=== PATIENT | male | born 1960 | race Caucasian/White ===

== ENCOUNTER 2019-09-06 12:34 | Inpatient (IN) | payer MEDICAID ==
[~2019-09-06] VITALS: Ht 175.3 cm; Wt 63.0 kg
[~2019-09-06 12:34] MED LIST: ASPI81TA52 PO; ATOR10TA87 PO; CLOP75TA15 PO; LISI-600 PO; METO-395 PO; METO-539 PO
[2019-09-06 13:06] LABS: BASOPHILS # (AUTO) 0.1 X10'3 (0-0.2); EOSINOPHILS % (AUTO) 0.4 % (0-6); HEMATOCRIT 42.4 % (42.0-52.0); HEMOGLOBIN 14.2 g/dl (14.0-17.9); LYMPHOCYTES # (AUTO) 1.2 X10'3 (1.1-4.8); LYMPHOCYTES % (AUTO) 12.7 % (21-51); MEAN CORPUSCULAR HEMOGLOBIN 33.6 PG (27.0-31.0); MEAN CORPUSCULAR HGB CONC 33.4 g/dL (33.0-36.5); MEAN CORPUSCULAR VOLUME 100.4 FL (78-98); MEAN PLATELET VOLUME 8.2 FL (7.4-10.4); MONOCYTES % (AUTO) 10.6 % (2-12); NEUTROPHILS # (AUTO) 7.1 X10'3 (1.8-7.7); NEUTROPHILS % (AUTO) 75.3 % (42-75); PLATELET COUNT 205 X10'3 (140-440); RED BLOOD COUNT 4.22 X10'6 (4.70-6.10); RED CELL DISTRIBUTION WIDTH 14.7 % (11.5-14.5); WHITE BLOOD COUNT 9.4 X10'3 (4.5-11.0)
[2019-09-06 13:20] LABS: PARTIAL THROMBOPLASTIN TIME 25 SECONDS (22-32)
[2019-09-06 13:23] LABS: ALANINE AMINOTRANSFERASE 93 U/L (12-78); ALBUMIN 3.6 G/DL (3.4-5.0); ALKALINE PHOSPHATASE 101 IU/L (46-116); ANION GAP 15 (8-16); ASPARTATE AMINO TRANSFERASE 268 U/L (10-37); BILIRUBIN,TOTAL 0.6 MG/DL (0.1-1.0); BLOOD UREA NITROGEN 31 MG/DL (7-18); BUN/CREATININE RATIO 26.3 (5.4-32.0); CALCIUM 9.2 MG/DL (8.5-10.1); CHLORIDE 99 MMOL/L (99-107); CREATININE 1.18 MG/DL (0.60-1.10); GLUCOSE 73 MG/DL (70-104); SODIUM 141 MMOL/L (135-145); TOTAL CARBON DIOXIDE 26.8 MMOL/L (24-32); TOTAL PROTEIN 7.1 G/DL (6.4-8.2); eGFR 63 ML/MIN
--- NOTE | 2019-09-06 13:28 | NUR ---
O2 TAKEN OFF AND HAD PT JUNE AT [facility]. PTS SATS MAINTAINED >92% DURING ACTIVITY, HR INCREASED FROM 60BPM TO 90'S BPM AND RR INCREASED FROM 18 TO 32. MD ALVARENGA INFORMED OF VSS WITH ACTIVITY.
[2019-09-06] MEDS ORDERED: magnesium 2GM in 50ml NS 50 ML IV PRN (14:55)
[2019-09-06] MEDS ORDERED: thiamine 100mg/ml 2ml inj. IV ONE (14:55)
[2019-09-06] MEDS ORDERED: acetaminophen 325mg tablet PO PRN (14:55)
[2019-09-06] MEDS ORDERED: dextrose 50%-water 50ml dispensing syringe IV PRN (14:55)
[2019-09-06] MEDS ORDERED: magnesium hydroxide 30ml (MOM) UD suspension PO PRN (14:55)
[2019-09-06] MEDS ORDERED: haloperidol 5mg tablet PO PRN (14:55)
[2019-09-06] MEDS ORDERED: potassium CL 10mEq/100ml bag 100 ML IV PRN ×2 (14:55)
[2019-09-06] MEDS ORDERED: potassium Cl 20 mEq SR tablet PO PRN ×2 (14:55)
[2019-09-06] MEDS ORDERED: ondansetron/PF 4mg/2ml inj IV PRN (14:55)
[2019-09-06] MEDS ORDERED: mag hydrox/Alum hydrox/simeth 30ml oral suspension PO PRN (14:55)
[2019-09-06] MEDS ORDERED: ipratropium/albuterol 3ml nebule NEB PRN (14:55)
[2019-09-06] MEDS ORDERED: magnesium 4gm in 100ml NS 100 ML IV PRN (14:55)
[2019-09-06] MEDS ORDERED: haloperidol lactate 5mg/ml inj IM PRN (14:55)
[2019-09-06] MEDS ORDERED: morphine 2 MG/ML inj. syringe IV PRN ×2 (14:55)
[2019-09-06 15:00] LABS: ABG BASE EXCESS -2.7 mmol/L (-2.0-3.0); ABG HCO3 22.4 mmol/L (22.0-26.0); ABG OXYGEN SATURATION 91.8 % (95-98); ABG PCO2 (T) 40.2 mmHg (35.0-45.0); ABG PH (T) 7.364 (7.350-7.450); ABG PO2 (T) 68.4 mmHg (83-108); ALLEN'S TEST POSITIVE; FCOHb 4.8 % (0.5-1.5); FMetHb 0.3 % (0.3-1.12); FO2Hb 87.1 % (94-100); TOTAL HEMOGLOBIN 13.7 G/dl (14.0-17.9)
[2019-09-06] MEDS ORDERED: HYDR25TA4 PO (15:17)
[2019-09-06] MEDS ORDERED: CHOL500050 PO (15:17)
[2019-09-06] MEDS ORDERED: DOXE10CA2 PO (15:17)
[2019-09-06] MEDS: normal saline 1000ml 1,000 ML IV SCH (15:56)
[2019-09-06 17:15] VITALS: BP 129/76
--- NOTE | 2019-09-06 18:44 | NUR ---
Patient in room [facility]. I have received report from Adela DUARTE and had the opportunity to ask questions and assume patient care.
[2019-09-06] MEDS ORDERED: pneumococcal 23-VAL P-sac vacc 25 mcg/0.5ml vial IMVAC ONE (19:00)
[2019-09-06] MEDS: budesonide 0.5mg/2ml UD nebule IH SCH (19:14)
[2019-09-06 20:00] VITALS: BP 122/73
[2019-09-06] MEDS: K and/or MAG REPLACEMENT MC SCH (20:00)
[2019-09-06] MEDS: doxepin 10mg capsule PO SCH (21:00)
[2019-09-06] MEDS: DOXYCYCLINE 100MG CAPSULE PO SCH (21:03)
[2019-09-06] MEDS: LORazepam 2 mg/ml vial IV PRN (23:20)
[2019-09-07] VITALS: BP 111/69
[2019-09-07] MEDS: heparin, porcine 5000 units/ml vial SQ SCH ×3 (00:22→17:17)
[2019-09-07] MEDS: normal saline 1000ml 1,000 ML IV SCH ×3 (03:18→22:53)
--- NOTE | 2019-09-07 06:25 | NUR ---
Patient in room [facility]. I have received report from GERALD Davis and had the opportunity to ask questions and assume patient care.
--- NOTE | 2019-09-07 06:28 | NUR ---
Problems reprioritized. Patient report given, questions answered & plan of care reviewed with Mary DUARTE.
[2019-09-07 06:56] LABS: HEMATOCRIT 37.7 % (42.0-52.0); HEMOGLOBIN 12.5 g/dl (14.0-17.9); MEAN CORPUSCULAR HEMOGLOBIN 33.7 PG (27.0-31.0); MEAN CORPUSCULAR HGB CONC 33.2 g/dL (33.0-36.5); MEAN CORPUSCULAR VOLUME 101.7 FL (78-98); MEAN PLATELET VOLUME 8.7 FL (7.4-10.4); PLATELET COUNT 166 X10'3 (140-440); RED BLOOD COUNT 3.71 X10'6 (4.70-6.10); RED CELL DISTRIBUTION WIDTH 14.8 % (11.5-14.5); WHITE BLOOD COUNT 8.9 X10'3 (4.5-11.0)
[2019-09-07 07:16] LABS: ALANINE AMINOTRANSFERASE 83 U/L (12-78); ALBUMIN 2.9 G/DL (3.4-5.0); ALKALINE PHOSPHATASE 85 IU/L (46-116); ANION GAP 6 (8-16); ASPARTATE AMINO TRANSFERASE 210 U/L (10-37); BILIRUBIN,TOTAL 0.7 MG/DL (0.1-1.0); BLOOD UREA NITROGEN 32 MG/DL (7-18); BUN/CREATININE RATIO 24.1 (5.4-32.0); CALCIUM 7.9 MG/DL (8.5-10.1); CHLORIDE 103 MMOL/L (99-107); CHOL/HDL RATIO 1.7 (0.00-4.99); CHOLESTEROL 163 MG/DL (0-200); CREATININE 1.33 MG/DL (0.60-1.10); GLUCOSE 74 MG/DL (70-104); HDL CHOLESTEROL 95 MG/DL (35-60); LDL CHOLESTEROL 41 MG/DL (50-100); MAGNESIUM 1.3 MG/DL (1.5-2.4); POTASSIUM 3.8 MMOL/L (3.5-5.1); SODIUM 140 MMOL/L (135-145); TOTAL CARBON DIOXIDE 30.7 MMOL/L (24-32); TOTAL PROTEIN 5.8 G/DL (6.4-8.2); TRIGLYCERIDES 109 MG/DL (20-135); eGFR 55 ML/MIN
[2019-09-07] MEDS: thiamine 100mg tablet PO SCH (07:43)
[2019-09-07] MEDS: cholecalciferol (vitamin D) 400 unit tablet PO SCH (07:43)
[2019-09-07] MEDS: folic acid 1mg tablet PO SCH (07:45)
[2019-09-07] MEDS: predniSONE 20 mg tablet PO SCH (07:45)
[2019-09-07] MEDS: multivitamins, therapeutics tablet PO SCH (07:45)
[2019-09-07] MEDS: DOXYCYCLINE 100MG CAPSULE PO SCH ×2 (07:45→20:49)
[2019-09-07] MEDS: aspirin 81mg tablet.DR PO SCH (07:45)
[2019-09-07 08:00] VITALS: BP 107/56
[2019-09-07] MEDS: metoprolol succinate 25mg (24-HOUR) SR. Tablet PO SCH (08:00)
[2019-09-07] MEDS: K and/or MAG REPLACEMENT MC SCH ×2 (08:00→20:00)
--- NOTE | 2019-09-07 08:05 | NUR ---
Pt refused Metoprolol BP107/56. HR 61. states did not want BP to drop too low.
[2019-09-07] MEDS: budesonide 0.5mg/2ml UD nebule IH SCH ×2 (08:26→19:30)
[2019-09-07] MEDS: LORazepam 2 mg/ml vial IV PRN ×2 (11:10→20:49)
[2019-09-07 12:00] VITALS: BP 107/74
--- NOTE | 2019-09-07 12:03 | NUR ---
Pt BS 66. OJ given. Rechecked BS 94 Addendum: 09/07/19 at 1205 by Mary Lloyd RN Amended: Links added.
[2019-09-07] MEDS: magnesium Cl slow-release 64mg tablet PO PRN ×2 (12:50→22:54)
--- NOTE | 2019-09-07 18:50 | NUR ---
Patient in room [facility]. I have received report from Mary DUARTE and had the opportunity to ask questions and assume patient care.
--- NOTE | 2019-09-07 18:52 | NUR ---
Problems reprioritized. Patient report given, questions answered & plan of care reviewed with GERALD Davis. Pt ambulated with PT. less S.O.B noted with exertion. O2sat 97% on R/A.
[2019-09-07 20:00] VITALS: BP 154/87
[2019-09-07] MEDS: doxepin 10mg capsule PO SCH (20:49)
[2019-09-07] MEDS: lactobacillus rhamnosus 10,000 MMU CELLS/CAPSULE PO SCH (20:49)
[2019-09-08] VITALS: BP 132/89
[2019-09-08] MEDS: heparin, porcine 5000 units/ml vial SQ SCH ×3 (01:32→16:42)
--- NOTE | 2019-09-08 06:54 | NUR ---
Patient in room [facility]. I have received report from GERALD Davis and had the opportunity to ask questions and assume patient care.
[2019-09-08 07:12] LABS: HEMOGLOBIN 11.5 g/dl (14.0-17.9); MEAN CORPUSCULAR HEMOGLOBIN 34.4 PG (27.0-31.0); MEAN CORPUSCULAR HGB CONC 33.9 g/dL (33.0-36.5); MEAN CORPUSCULAR VOLUME 101.4 FL (78-98); MEAN PLATELET VOLUME 8.9 FL (7.4-10.4); PLATELET COUNT 130 X10'3 (140-440); RED BLOOD COUNT 3.35 X10'6 (4.70-6.10); WHITE BLOOD COUNT 8.5 X10'3 (4.5-11.0)
[2019-09-08] MEDS: normal saline 1000ml 1,000 ML IV SCH ×2 (07:38→17:53)
[2019-09-08] MEDS: DOXYCYCLINE 100MG CAPSULE PO SCH ×2 (07:40→19:55)
[2019-09-08] MEDS: thiamine 100mg tablet PO SCH (07:40)
[2019-09-08] MEDS: metoprolol succinate 25mg (24-HOUR) SR. Tablet PO SCH (07:40)
[2019-09-08] MEDS: folic acid 1mg tablet PO SCH (07:40)
[2019-09-08] MEDS: multivitamins, therapeutics tablet PO SCH (07:40)
[2019-09-08] MEDS: predniSONE 20 mg tablet PO SCH (07:40)
[2019-09-08] MEDS: aspirin 81mg tablet.DR PO SCH (07:40)
[2019-09-08] MEDS: cholecalciferol (vitamin D) 400 unit tablet PO SCH (07:40)
[2019-09-08 07:43] LABS: ALANINE AMINOTRANSFERASE 62 U/L (12-78); ALBUMIN 2.7 G/DL (3.4-5.0); ALKALINE PHOSPHATASE 72 IU/L (46-116); ANION GAP 6 (8-16); ASPARTATE AMINO TRANSFERASE 109 U/L (10-37); BILIRUBIN,TOTAL 0.6 MG/DL (0.1-1.0); BLOOD UREA NITROGEN 20 MG/DL (7-18); BUN/CREATININE RATIO 17.4 (5.4-32.0); CALCIUM 7.9 MG/DL (8.5-10.1); CHLORIDE 105 MMOL/L (99-107); CREATININE 1.15 MG/DL (0.60-1.10); GLUCOSE 96 MG/DL (70-104); MAGNESIUM 1.3 MG/DL (1.5-2.4); POTASSIUM 3.5 MMOL/L (3.5-5.1); SODIUM 139 MMOL/L (135-145); TOTAL CARBON DIOXIDE 28.3 MMOL/L (24-32); TOTAL PROTEIN 5.3 G/DL (6.4-8.2); eGFR 65 ML/MIN
[2019-09-08 08:00] VITALS: BP 155/77
[2019-09-08] MEDS: K and/or MAG REPLACEMENT MC SCH ×2 (08:00→19:36)
[2019-09-08] MEDS: lactobacillus rhamnosus 10,000 MMU CELLS/CAPSULE PO SCH ×2 (08:00→19:55)
[2019-09-08] MEDS: budesonide 0.5mg/2ml UD nebule IH SCH ×2 (08:06→20:06)
[2019-09-08] MEDS: LORazepam 2 mg/ml vial IV PRN (09:51)
[2019-09-08 12:00] VITALS: BP 138/72
--- NOTE | 2019-09-08 12:24 | NUR ---
Dr. Do phoned to state the newly ordered CTA was not needed. Order cancelled.
[2019-09-08] MEDS ORDERED: LORazepam 1 MG tablet PO PRN (14:55)
[2019-09-08] MEDS ORDERED: LORazepam 2 mg/ml vial IV PRN (14:55)
[2019-09-08 18:00] VITALS: BP 144/88
--- NOTE | 2019-09-08 18:54 | NUR ---
Problems reprioritized. Patient report given, questions answered & plan of care reviewed with GERALD Leung. Pt tolerating activity with less SOB. Ativan prn given once for anxiety.
--- NOTE | 2019-09-08 19:40 | NUR ---
Patient in room [facility]. I have received report from Mary DUARTE and had the opportunity to ask questions and assume patient care.
[2019-09-08] MEDS: magnesium Cl slow-release 64mg tablet PO PRN (20:00)
[2019-09-08] MEDS: doxepin 10mg capsule PO SCH (20:54)
[2019-09-09] VITALS: BP 140/70
[2019-09-09] MEDS: heparin, porcine 5000 units/ml vial SQ SCH ×2 (00:35→07:50)
[2019-09-09] MEDS: normal saline 1000ml 1,000 ML IV SCH (03:27)
[2019-09-09 05:08] LABS: HEMATOCRIT 33.4 % (42.0-52.0); HEMOGLOBIN 11.2 g/dl (14.0-17.9); MEAN CORPUSCULAR HEMOGLOBIN 33.6 PG (27.0-31.0); MEAN CORPUSCULAR HGB CONC 33.4 g/dL (33.0-36.5); MEAN CORPUSCULAR VOLUME 100.7 FL (78-98); MEAN PLATELET VOLUME 8.9 FL (7.4-10.4); PLATELET COUNT 115 X10'3 (140-440); RED BLOOD COUNT 3.32 X10'6 (4.70-6.10); RED CELL DISTRIBUTION WIDTH 14.2 % (11.5-14.5); WHITE BLOOD COUNT 7.8 X10'3 (4.5-11.0)
[2019-09-09 05:24] LABS: ALANINE AMINOTRANSFERASE 74 U/L (12-78); ALBUMIN 2.6 G/DL (3.4-5.0); ALKALINE PHOSPHATASE 73 IU/L (46-116); ANION GAP 3 (8-16); ASPARTATE AMINO TRANSFERASE 141 U/L (10-37); BILIRUBIN,TOTAL 0.5 MG/DL (0.1-1.0); BLOOD UREA NITROGEN 13 MG/DL (7-18); BUN/CREATININE RATIO 10.9 (5.4-32.0); CHLORIDE 107 MMOL/L (99-107); CREATININE 1.19 MG/DL (0.60-1.10); GLUCOSE 88 MG/DL (70-104); MAGNESIUM 1.3 MG/DL (1.5-2.4); POTASSIUM 3.8 MMOL/L (3.5-5.1); SODIUM 140 MMOL/L (135-145); TOTAL CARBON DIOXIDE 29.6 MMOL/L (24-32); TOTAL PROTEIN 5.2 G/DL (6.4-8.2); eGFR 62 ML/MIN
--- NOTE | 2019-09-09 06:00 | NUR ---
Patient in room [facility]. I have received report from Xochitl DUARTE and had the opportunity to ask questions and assume patient care.
--- NOTE | 2019-09-09 06:33 | NUR ---
Problems reprioritized. Patient report given, questions answered & plan of care reviewed with Debra DUARTE.
[2019-09-09 07:00] VITALS: BP 151/97
[2019-09-09] MEDS: budesonide 0.5mg/2ml UD nebule IH SCH (07:04)
[2019-09-09] MEDS: multivitamins, therapeutics tablet PO SCH (07:46)
[2019-09-09] MEDS: DOXYCYCLINE 100MG CAPSULE PO SCH (07:46)
[2019-09-09] MEDS: predniSONE 20 mg tablet PO SCH (07:46)
[2019-09-09] MEDS: lactobacillus rhamnosus 10,000 MMU CELLS/CAPSULE PO SCH (07:46)
[2019-09-09] MEDS: cholecalciferol (vitamin D) 400 unit tablet PO SCH (07:46)
[2019-09-09] MEDS: metoprolol succinate 25mg (24-HOUR) SR. Tablet PO SCH (07:46)
[2019-09-09] MEDS: thiamine 100mg tablet PO SCH (07:46)
[2019-09-09] MEDS: aspirin 81mg tablet.DR PO SCH (07:46)
[2019-09-09] MEDS: folic acid 1mg tablet PO SCH (07:46)
[2019-09-09] MEDS: magnesium Cl slow-release 64mg tablet PO PRN (07:47)
[2019-09-09] MEDS: K and/or MAG REPLACEMENT MC SCH (07:54)
[2019-09-09 11:00] VITALS: BP 140/82
[2019-09-09] MEDS ORDERED: MULT-1179 PO (11:52)
[2019-09-09] MEDS ORDERED: folic acid tablet PO (11:52)
[2019-09-09] MEDS ORDERED: PRED5TAB PO (12:35)
--- NOTE | 2019-09-09 13:37 | NUR ---
Patient stable for discharge home today, all instructions given to patient and and questions answered. Prescriptions called into [facility] on [address]. IV discontinued and cannula intact.
[2019-09-10] MEDS ORDERED: LORazepam 2 mg/ml vial IV PRN (14:55)
[2019-09-10] MEDS ORDERED: LORazepam 1 MG tablet PO PRN (14:55)
== END 2019-09-09 13:30 | disposition home or self-care (01) | DRG 140 ==
LOC: ER 12:35 → ED HOLD 14:54 → SUR 3N 17:10 → UNDODISIN 09-09 10:20
PROVIDERS: ADMIT Family Medicine; ATTEND Internal Medicine
PROC: 3E0234Z Introduction of Serum, Toxoid and Vaccine into Muscle, Percutaneous Approach (ICD-10-PCS; principal; 2019-09-06)
DX: J44.9 Chronic obstructive pulmonary disease, unspecified (principal); K76.0 Fatty (change of) liver, not elsewhere classified; K70.10 Alcoholic hepatitis without ascites; D53.9 Nutritional anemia, unspecified; E78.5 Hyperlipidemia, unspecified; F10.20 Alcohol dependence, uncomplicated; I10 Essential (primary) hypertension; N28.9 Disorder of kidney and ureter, unspecified; I25.10 Atherosclerotic heart disease of native coronary artery without angina pectoris; R09.02 Hypoxemia; Z20.828 Contact with and (suspected) exposure to other viral communicable diseases; F12.90 Cannabis use, unspecified, uncomplicated; R06.03 Acute respiratory distress; Z77.22 Contact with and (suspected) exposure to environmental tobacco smoke (acute) (chronic); Z85.038 Personal history of other malignant neoplasm of large intestine; I25.2 Old myocardial infarction; Z23 Encounter for immunization; Z79.899 Other long term (current) drug therapy
CPT/HCPCS: 36415; 36600; 71045; 74176; 80053; 80061; 82803; 82948; 83605; 83735; 83880; 84484; 85018; 85025; 85027; 85610; 85730; 87040; 87070; 87077; 87081; 87186; 87635; 90732; 92508; 92616; 93005; 93306; 94640; 94760; 97110; 97116; 97161; 97530; 99285; G0378; J1644; J2060; J3411; J7030; J7512; J7626

== ENCOUNTER 2021-06-14 18:03 | Inpatient (IN) | payer MEDICAID ==
[~2021-06-14] VITALS: Ht 182.9 cm; Wt 81.8 kg
[~2021-06-14 18:03] MED LIST changes: -ATOR10TA87 PO; +CHOL500050 PO; -CLOP75TA15 PO; +DOXE10CA2 PO; +HYDR25TA4 PO; -LISI-600 PO; +LISI20TA28 PO; -METO-539 PO; +MULT-25 PO; +PRED5TAB PO; +folic acid tablet PO
--- NOTE | 2021-06-14 18:05 | NUR ---
Patient in trendelenberg to assist with blood pressure.
[2021-06-14] MEDS ORDERED: DOBUTamine-DoBUTrex 500mg/D5W 250 ML IV SCH (18:25)
[2021-06-14] MEDS ORDERED: heparin 10,000 units/1 ML INJ IV ONE (18:35)
[2021-06-14 18:43] LABS: BASOPHILS # (AUTO) 0.1 X10'3 (0-0.2); BASOPHILS % (AUTO) 0.5 % (0-1); EOSINOPHILS # (AUTO) 0.3 X10'3 (0-0.9); EOSINOPHILS % (AUTO) 1.6 % (0-6); HEMATOCRIT 30.5 % (42.0-52.0); LYMPHOCYTES # (AUTO) 2.6 X10'3 (1.1-4.8); LYMPHOCYTES % (AUTO) 13.6 % (21-51); MEAN CORPUSCULAR HEMOGLOBIN 33.1 PG (27.0-31.0); MEAN CORPUSCULAR HGB CONC 32.9 g/dL (33.0-36.5); MEAN CORPUSCULAR VOLUME 100.6 FL (78-98); MONOCYTES % (AUTO) 10.5 % (2-12); NEUTROPHILS # (AUTO) 13.9 X10'3 (1.8-7.7); NEUTROPHILS % (AUTO) 73.8 % (42-75); PLATELET COUNT 238 X10'3 (140-440); RED BLOOD COUNT 3.03 X10'6 (4.70-6.10); RED CELL DISTRIBUTION WIDTH 15.3 % (11.5-14.5); WHITE BLOOD COUNT 18.9 X10'3 (4.5-11.0)
[2021-06-14 18:53] LABS: ALANINE AMINOTRANSFERASE 20 U/L (12-78); ALBUMIN 2.7 G/DL (3.4-5.0); ALKALINE PHOSPHATASE 69 IU/L (46-116); ANION GAP 19 (8-16); ASPARTATE AMINO TRANSFERASE 57 U/L (10-37); BILIRUBIN,TOTAL 0.8 MG/DL (0.1-1.0); BLOOD UREA NITROGEN 10 MG/DL (7-18); BUN/CREATININE RATIO 7.5 (5.4-32.0); CALCIUM 7.9 MG/DL (8.5-10.1); CHLORIDE 103 MMOL/L (99-107); CREATININE 1.34 MG/DL (0.60-1.10); GLUCOSE 180 MG/DL (70-104); POTASSIUM 3.8 MMOL/L (3.5-5.1); SODIUM 138 MMOL/L (135-145); TOTAL CARBON DIOXIDE 16.5 MMOL/L (24-32); TOTAL PROTEIN 5.5 G/DL (6.4-8.2); eGFR 54 ML/MIN
[2021-06-14] MEDS ORDERED: NORepinephrine inj. 8 MG in dextrose 5%-water 242 ML IV SCH (18:55)
[2021-06-14 18:59] LABS: LIPASE < 50 U/L (73-393)
[2021-06-14] MEDS: NORepinephrine 8mg/ 250ml NS 250 ML IV SCH (19:01)
[2021-06-14] MEDS ORDERED: midazolam 1 mg/ML 2ml injection ONE (19:04)
[2021-06-14] MEDS ORDERED: fentaNYL/PF 50MCG/1 ML 2ML syringe ONE (19:04)
[2021-06-14] MEDS ORDERED: LIDOcaine 1% (10mg/ml)w/preservative injection 20ml MDV ONE (19:04)
[2021-06-14] MEDS ORDERED: iohexol 350 MG/ML 50ML vial IV ONE (19:05)
[2021-06-14] MEDS ORDERED: iohexol 350MG/ML 100ml bottle IV ONE ×2 (19:05→20:03)
[2021-06-14] MEDS ORDERED: heparin 25,000 UNIT/250ml bag 250 ML IV ONE (19:28)
[2021-06-14] MEDS ORDERED: heparin 1,000unit/ml 10ml vial 10 ML ONE (19:36)
[2021-06-14] MEDS ORDERED: tirofiban 5mg in NS 100mL 100 ML IV ONE (19:42)
[2021-06-14] MEDS ORDERED: LIDOcaine 2 gm/250ml D5W 250 ML IV ONE (20:26)
[2021-06-14] MEDS ORDERED: ticagrelor 90mg tablet ONE (20:44)
[2021-06-14 21:15] VITALS: BP 145/87
[2021-06-14 21:30] VITALS: BP 135/92
[2021-06-14] MEDS ORDERED: potassium Cl 20mEq/100mL bag 100 ML IV PRN (21:30)
[2021-06-14] MEDS ORDERED: potassium Cl 20 mEq SR tablet PO PRN ×3 (21:30→21:50)
[2021-06-14] MEDS ORDERED: magnesium 4gm in 100ml NS 100 ML IV PRN (21:30)
[2021-06-14] MEDS ORDERED: potassium Cl 40MEQ/1/2NS 520ml 520 ML IV PRN (21:30)
[2021-06-14] MEDS ORDERED: potassium CL 10mEq/100ml bag 100 ML IV PRN (21:30)
[2021-06-14] MEDS ORDERED: potassium Cl 40MEQ/250ML bag 250 ML IV PRN (21:30)
[2021-06-14] MEDS ORDERED: magnesium hydroxide 30ml (MOM) UD suspension PO PRN ×2 (21:35→21:50)
[2021-06-14] MEDS ORDERED: proCHLORperazine 10 MG/2 ml inj IV PRN (21:35)
[2021-06-14] MEDS ORDERED: nitroGLYCERIN 0.4mg SUBLingual tab SL PRN (21:35)
[2021-06-14] MEDS ORDERED: morphine 4 MG/ML inj SYRINge IV PRN (21:35)
[2021-06-14] MEDS ORDERED: OXAZEpam 15mg capsule PO PRN (21:35)
[2021-06-14] MEDS: nitroGLYCERIN-Tridil 50MG/D5W 250 ML IV SCH (21:35)
[2021-06-14] MEDS ORDERED: cyclobenzaprine 10mg tablet PO PRN (21:35)
[2021-06-14] MEDS ORDERED: morphine 10mg/ml inj. IV PRN (21:35)
[2021-06-14] MEDS ORDERED: acetaminophen 325mg tablet PO PRN ×4 (21:35→21:50)
[2021-06-14] MEDS: normal saline 1000ml 1,000 ML IV SCH (21:35)
[2021-06-14] MEDS ORDERED: HYDROcodone/acetaminophen 10/325mg tab PO PRN (21:35)
[2021-06-14] MEDS ORDERED: heparin 25,000 UNIT/250ml bag 250 ML IV SCH (21:40)
[2021-06-14 21:45] VITALS: BP 139/92
[2021-06-14] MEDS: tirofiban 5mg in NS 100mL 100 ML IV SCH (21:45)
[2021-06-14] MEDS ORDERED: ATOR10TA70 PO (21:50)
[2021-06-14] MEDS ORDERED: PERFLUTREN PROTEIN-A MICROSPHR (Optison) 0.22 MG/ML 3ML VIAL IV PRN (21:50)
[2021-06-14] MEDS ORDERED: ipratropium/albuterol 3ml nebule NEB PRN ×2 (21:50)
[2021-06-14] MEDS ORDERED: LIDOcaine 2 gm/250ml D5W 250 ML IV SCH (21:50)
[2021-06-14] MEDS ORDERED: ESCI-8 PO (21:50)
[2021-06-14 22:00] VITALS: BP_SYST 137; BP_SYST 140; BP_DIAS 79; BP_DIAS 87
[2021-06-14] MEDS ORDERED: LORazepam 2 mg/ml vial IV PRN ×2 (22:10)
[2021-06-14] MEDS ORDERED: labetalol 20mg/4ml (5mg/ml) syringe IV PRN (22:10)
[2021-06-14] MEDS ORDERED: LORazepam 1 MG tablet PO PRN (22:10)
[2021-06-14 22:38] LABS: BASOPHILS % (AUTO) 0.2 % (0-1); EOSINOPHILS % (AUTO) 0.2 % (0-6); HEMATOCRIT 28.7 % (42.0-52.0); HEMOGLOBIN 9.7 g/dl (14.0-17.9); LYMPHOCYTES # (AUTO) 0.8 X10'3 (1.1-4.8); LYMPHOCYTES % (AUTO) 4.6 % (21-51); MEAN CORPUSCULAR HEMOGLOBIN 33.2 PG (27.0-31.0); MEAN CORPUSCULAR HGB CONC 33.7 g/dL (33.0-36.5); MEAN CORPUSCULAR VOLUME 98.4 FL (78-98); MEAN PLATELET VOLUME 7.6 FL (7.4-10.4); MONOCYTES # (AUTO) 1.8 X10'3 (0-0.9); MONOCYTES % (AUTO) 9.9 % (2-12); NEUTROPHILS # (AUTO) 15.2 X10'3 (1.8-7.7); NEUTROPHILS % (AUTO) 85.1 % (42-75); PLATELET COUNT 202 X10'3 (140-440); RED BLOOD COUNT 2.92 X10'6 (4.70-6.10); RED CELL DISTRIBUTION WIDTH 15.6 % (11.5-14.5); WHITE BLOOD COUNT 17.9 X10'3 (4.5-11.0)
[2021-06-14 23:00] VITALS: BP 132/77
[2021-06-14 23:36] LABS: ALBUMIN 2.7 G/DL (3.4-5.0); ANION GAP 10 (8-16); BLOOD UREA NITROGEN 11 MG/DL (7-18); BUN/CREATININE RATIO 9.8 (5.4-32.0); CALCIUM 7.4 MG/DL (8.5-10.1); CHLORIDE 103 MMOL/L (99-107); CREATININE 1.12 MG/DL (0.60-1.10); GLUCOSE 155 MG/DL (70-104); MAGNESIUM 1.3 MG/DL (1.5-2.4); POTASSIUM 3.9 MMOL/L (3.5-5.1); SODIUM 134 MMOL/L (135-145); TOTAL CARBON DIOXIDE 20.6 MMOL/L (24-32); eGFR 66 ML/MIN
[2021-06-15] VITALS (26 sets, daily range): BP systolic 93–143; BP diastolic 51–88
[2021-06-15] MEDS: tirofiban 5mg in NS 100mL 100 ML IV SCH (00:27)
--- NOTE | 2021-06-15 01:00 | NUR ---
PT found sitting straight up in bed. Pushed pateint flat and checked femoral sheath site. Asked patient why he sat up and he stated, "I have to Poop!" placed patient on bedpan for 20 minutes with no results. Re-educated patients about the danger of sitting up with them femoral sheath site.
[2021-06-15 03:19] LABS: BASOPHILS % (AUTO) 0.2 % (0-1); EOSINOPHILS % (AUTO) 0.1 % (0-6); HEMATOCRIT 26.2 % (42.0-52.0); HEMOGLOBIN 8.7 g/dl (14.0-17.9); LYMPHOCYTES # (AUTO) 0.7 X10'3 (1.1-4.8); LYMPHOCYTES % (AUTO) 5.1 % (21-51); MEAN CORPUSCULAR HEMOGLOBIN 32.6 PG (27.0-31.0); MEAN CORPUSCULAR HGB CONC 33.3 g/dL (33.0-36.5); MEAN PLATELET VOLUME 8.2 FL (7.4-10.4); MONOCYTES # (AUTO) 1.6 X10'3 (0-0.9); MONOCYTES % (AUTO) 12.2 % (2-12); NEUTROPHILS # (AUTO) 10.9 X10'3 (1.8-7.7); NEUTROPHILS % (AUTO) 82.4 % (42-75); PLATELET COUNT 200 X10'3 (140-440); RED BLOOD COUNT 2.67 X10'6 (4.70-6.10); RED CELL DISTRIBUTION WIDTH 15.3 % (11.5-14.5); WHITE BLOOD COUNT 13.2 X10'3 (4.5-11.0)
[2021-06-15 04:05] LABS: ALBUMIN 2.6 G/DL (3.4-5.0); ANION GAP 12 (8-16); BLOOD UREA NITROGEN 12 MG/DL (7-18); BUN/CREATININE RATIO 12.6 (5.4-32.0); CALCIUM 7.5 MG/DL (8.5-10.1); CHLORIDE 106 MMOL/L (99-107); CHOL/HDL RATIO 2.5 (0.00-4.99); CHOLESTEROL 130 MG/DL (0-200); CREATININE 0.95 MG/DL (0.60-1.10); GLUCOSE 121 MG/DL (70-104); HDL CHOLESTEROL 53 MG/DL (35-60); LDL CHOLESTEROL 57 MG/DL (50-100); MAGNESIUM 2.2 MG/DL (1.5-2.4); PHOSPHORUS 4.5 MG/DL (2.3-4.5); POTASSIUM 4.3 MMOL/L (3.5-5.1); SODIUM 139 MMOL/L (135-145); TOTAL CARBON DIOXIDE 21.5 MMOL/L (24-32); TRIGLYCERIDES 80 MG/DL (20-135); eGFR 80 ML/MIN
--- NOTE | 2021-06-15 04:30 | NUR ---
Pt Pulled out external jugular iv. Pressure held on site until bleeding subsided. IV catheter intact, some blood found on pillow though blood loss seemed minimal.
[2021-06-15] MEDS: magnesium 2GM in 50ml NS 50 ML IV PRN ×3 (05:17→14:18)
[2021-06-15] MEDS: ticagrelor 90mg tablet PO SCH ×2 (07:49→19:58)
[2021-06-15] MEDS: docusate sod 100mg capsule PO SCH ×2 (07:49→19:58)
[2021-06-15] MEDS: pantoprazole 40mg Tablet.DR PO SCH (07:49)
[2021-06-15] MEDS: aspirin 81mg tab.chew PO SCH (07:49)
[2021-06-15] MEDS: K and/or MAG REPLACEMENT MC SCH (08:00)
[2021-06-15] MEDS: NORepinephrine 8mg/ 250ml NS 250 ML IV SCH (11:19)
[2021-06-15] MEDS: ESCITALOPRAM OXALATE 5 MG TABLET PO SCH (14:26)
[2021-06-15] MEDS: normal saline 1000ml 1,000 ML IV SCH (17:35)
[2021-06-15] MEDS: nitroGLYCERIN-Tridil 50MG/D5W 250 ML IV SCH (21:35)
[2021-06-16] VITALS (23 sets, daily range): BP systolic 98–151; BP diastolic 64–100
[2021-06-16 03:10] LABS: BASOPHILS % (AUTO) 0.4 % (0-1); EOSINOPHILS # (AUTO) 0.1 X10'3 (0-0.9); EOSINOPHILS % (AUTO) 0.7 % (0-6); LYMPHOCYTES # (AUTO) 0.6 X10'3 (1.1-4.8); LYMPHOCYTES % (AUTO) 7.3 % (21-51); MEAN CORPUSCULAR HEMOGLOBIN 33.2 PG (27.0-31.0); MEAN CORPUSCULAR HGB CONC 33.5 g/dL (33.0-36.5); MEAN CORPUSCULAR VOLUME 99.3 FL (78-98); MEAN PLATELET VOLUME 8.3 FL (7.4-10.4); MONOCYTES # (AUTO) 1.3 X10'3 (0-0.9); MONOCYTES % (AUTO) 15.5 % (2-12); NEUTROPHILS # (AUTO) 6.5 X10'3 (1.8-7.7); NEUTROPHILS % (AUTO) 76.1 % (42-75); PLATELET COUNT 207 X10'3 (140-440); RED BLOOD COUNT 2.42 X10'6 (4.70-6.10); RED CELL DISTRIBUTION WIDTH 15.5 % (11.5-14.5); WHITE BLOOD COUNT 8.6 X10'3 (4.5-11.0)
[2021-06-16 03:34] LABS: PHOSPHORUS 3.2 MG/DL (2.3-4.5); POTASSIUM 3.9 MMOL/L (3.5-5.1)
[2021-06-16] MEDS: NORepinephrine 8mg/ 250ml NS 250 ML IV SCH (03:37)
[2021-06-16] MEDS: HYDROcodone/acetaminophen 10/325mg tab PO PRN ×2 (05:48→19:14)
[2021-06-16] MEDS: pantoprazole 40mg Tablet.DR PO SCH (07:03)
[2021-06-16] MEDS: docusate sod 100mg capsule PO SCH ×2 (07:03→19:13)
[2021-06-16] MEDS: aspirin 81mg tab.chew PO SCH (07:03)
[2021-06-16] MEDS: ticagrelor 90mg tablet PO SCH ×2 (07:03→19:14)
[2021-06-16] MEDS: ESCITALOPRAM OXALATE 5 MG TABLET PO SCH (07:03)
[2021-06-16] MEDS: K and/or MAG REPLACEMENT MC SCH (08:00)
[2021-06-16] MEDS ORDERED: folic acid 1mg tablet PO SCH (08:00)
[2021-06-16] MEDS: lisinopril 20mg tablet PO SCH (11:57)
[2021-06-16] MEDS: metoprolol succinate 25mg (24-HOUR) SR. Tablet PO SCH (11:57)
[2021-06-16] MEDS: atorvastatin 10mg tablet PO SCH (11:57)
[2021-06-16] MEDS: normal saline 1000ml 1,000 ML IV SCH (13:35)
[2021-06-16] MEDS: thiamine 100mg tablet PO SCH (19:13)
[2021-06-16] MEDS: folic acid 1mg tablet PO SCH (19:14)
--- NOTE | 2021-06-16 22:08 | NUR ---
pt is being transferred to PCU, room 3024B, Report has been called to GERALD [place]
[2021-06-16] MEDS ORDERED: LORazepam 1 MG tablet PO PRN (22:10)
--- NOTE | 2021-06-16 22:40 | NUR ---
Patient transferred from ICU in no apparent distress. Patient currently denies pain or discomfort. Patient does not present and denies any S&S of withdrawal. NS running @ 50mL/hr. Patient oriented to room. Call light within reach. Will continue monitor.
[2021-06-17 02:00] VITALS: BP 122/82
[2021-06-17] MEDS: HYDROcodone/acetaminophen 10/325mg tab PO PRN ×2 (04:43→09:17)
[2021-06-17 06:05] LABS: BASOPHILS # (AUTO) 0.1 X10'3 (0-0.2); EOSINOPHILS # (AUTO) 0.2 X10'3 (0-0.9); EOSINOPHILS % (AUTO) 1.6 % (0-6); HEMATOCRIT 26.2 % (42.0-52.0); HEMOGLOBIN 8.7 g/dl (14.0-17.9); LYMPHOCYTES # (AUTO) 1.5 X10'3 (1.1-4.8); LYMPHOCYTES % (AUTO) 15.1 % (21-51); MEAN CORPUSCULAR HEMOGLOBIN 33.1 PG (27.0-31.0); MEAN CORPUSCULAR HGB CONC 33.1 g/dL (33.0-36.5); MEAN PLATELET VOLUME 7.9 FL (7.4-10.4); MONOCYTES # (AUTO) 1.7 X10'3 (0-0.9); MONOCYTES % (AUTO) 17.5 % (2-12); NEUTROPHILS # (AUTO) 6.4 X10'3 (1.8-7.7); NEUTROPHILS % (AUTO) 64.8 % (42-75); PLATELET COUNT 262 X10'3 (140-440); RED BLOOD COUNT 2.62 X10'6 (4.70-6.10); RED CELL DISTRIBUTION WIDTH 15.7 % (11.5-14.5); WHITE BLOOD COUNT 9.8 X10'3 (4.5-11.0)
[2021-06-17 06:23] LABS: POTASSIUM 4.5 MMOL/L (3.5-5.1)
--- NOTE | 2021-06-17 06:28 | NUR ---
Patient in no apparent distress. Problems reprioritized. Patient report given, questions answered & plan of care reviewed with Mena DUARTE/ Gala DUARTE
[2021-06-17] MEDS ORDERED: non-formulary drug (Escitalopram Oxalate 1 TAB) PO SCH (08:00)
[2021-06-17] MEDS ORDERED: LIDOcaine 5% patch TP SCH (08:00)
[2021-06-17 08:38] LABS: TOTAL CELLS COUNTED 100
[2021-06-17 08:39] LABS: PLATELET ESTIMATE NORMAL
[2021-06-17] MEDS: folic acid 1mg tablet PO SCH (09:04)
[2021-06-17] MEDS: docusate sod 100mg capsule PO SCH (09:04)
[2021-06-17] MEDS: metoprolol succinate 25mg (24-HOUR) SR. Tablet PO SCH (09:04)
[2021-06-17] MEDS: ESCITALOPRAM OXALATE 5 MG TABLET PO SCH (09:05)
[2021-06-17] MEDS: thiamine 100mg tablet PO SCH (09:05)
[2021-06-17] MEDS: aspirin 81mg tab.chew PO SCH (09:05)
[2021-06-17] MEDS: ticagrelor 90mg tablet PO SCH (09:06)
[2021-06-17] MEDS: lisinopril 20mg tablet PO SCH (09:06)
[2021-06-17] MEDS: atorvastatin 10mg tablet PO SCH (09:06)
[2021-06-17] MEDS: pantoprazole 40mg Tablet.DR PO SCH (09:18)
[2021-06-17 11:00] VITALS: BP 126/87
[2021-06-17] MEDS ORDERED: thiamine tablet PO (11:27)
[2021-06-17] MEDS ORDERED: PANT40TA54 PO (11:27)
[2021-06-17] MEDS ORDERED: TICA90TA PO (11:27)
[2021-06-17] MEDS ORDERED: FOLI1TAB27 PO (11:27)
[2021-06-17] MEDS ORDERED: NITR0.4T51 SL (11:27)
--- NOTE | 2021-06-17 13:10 | NUR ---
Patient DC to home and picked up by mom. PIV removed with cannula intact. RX sent to [facility] on [address]. DC instructions and warning s/s were reviewed with patient and he verbalized understanding. Stent cards and belongings were sent with the patient. Pt alert, oriented, and appropriate at time of dc.
[2021-06-18] MEDS ORDERED: LORazepam 1 MG tablet PO PRN (22:10)
== END 2021-06-17 13:08 | disposition home or self-care (01) | DRG 174 ==
LOC: ER 18:03 → ICU 2S 20:51 → PCU 3S 06-16 22:43
PROVIDERS: ADMIT Internal Medicine; ATTEND Internal Medicine
PROC: 4A023N7 Measurement of Cardiac Sampling and Pressure, Left Heart, Percutaneous Approach (ICD-10-PCS; principal; 2021-06-14)
PROC: 027036Z Dilation of Coronary Artery, One Artery with Three Drug-eluting Intraluminal Devices, Percutaneous Approach (ICD-10-PCS; 2021-06-14)
PROC: B2111ZZ Fluoroscopy of Multiple Coronary Arteries using Low Osmolar Contrast (ICD-10-PCS; 2021-06-14)
PROC: B2151ZZ Fluoroscopy of Left Heart using Low Osmolar Contrast (ICD-10-PCS; 2021-06-14)
DX: I21.19 ST elevation (STEMI) myocardial infarction involving other coronary artery of inferior wall (principal); R57.0 Cardiogenic shock; I44.2 Atrioventricular block, complete; I47.2 Ventricular tachycardia; E87.2 Acidosis; S32.9XXA Fracture of unspecified parts of lumbosacral spine and pelvis, initial encounter for closed fracture; Z20.822 Contact with and (suspected) exposure to COVID-19; R58 Hemorrhage, not elsewhere classified; N20.0 Calculus of kidney; F10.10 Alcohol abuse, uncomplicated; E83.42 Hypomagnesemia; K80.20 Calculus of gallbladder without cholecystitis without obstruction; N17.9 Acute kidney failure, unspecified; F60.9 Personality disorder, unspecified; E78.5 Hyperlipidemia, unspecified; I10 Essential (primary) hypertension; I25.10 Atherosclerotic heart disease of native coronary artery without angina pectoris; F17.200 Nicotine dependence, unspecified, uncomplicated; J81.1 Chronic pulmonary edema; I25.2 Old myocardial infarction; Z85.038 Personal history of other malignant neoplasm of large intestine; Z79.899 Other long term (current) drug therapy; V98.8XXA Other specified transport accidents, initial encounter; Y93.89 Activity, other specified; Y92.89 Other specified places as the place of occurrence of the external cause; Y99.8 Other external cause status; Z79.82 Long term (current) use of aspirin; Z71.6 Tobacco abuse counseling; Z79.02 Long term (current) use of antithrombotics/antiplatelets
CPT/HCPCS: 36415; 71045; 80048; 80053; 80061; 82948; 83605; 83690; 83735; 83880; 84100; 84132; 84484; 85007; 85025; 85610; 85730; 86885; 86900; 86901; 87635; 93005; 93306; 93458; 94760; 96365; 96368; 96375; 99285; A4620; A6258; A6449; C1725; C1751; C1760; C1769; C1874; C9606; C9803; G0378; J1250; J1644; J2001; J2250; J3010; J3246; J3475; J3490; J7030; J7040; J7060; Q9967

== ENCOUNTER 2021-07-19 23:11 | Emergency (ER) | payer MEDICAID ==
[~2021-07-19] VITALS: Ht 177.8 cm; Wt 68.0 kg
[~2021-07-19 23:11] MED LIST changes: +ATOR10TA70 PO; -CHOL500050 PO; -DOXE10CA2 PO; +ESCI-8 PO; +FOLI1TAB27 PO; -HYDR25TA4 PO; -MULT-25 PO; +NITR0.4T51 SL; +PANT40TA54 PO; -PRED5TAB PO; +TICA90TA PO; -folic acid tablet PO; +thiamine tablet PO
[2021-07-19 23:48] LABS: ALANINE AMINOTRANSFERASE 14 U/L (12-78); ALBUMIN 3.4 G/DL (3.4-5.0); ALBUMIN/GLOBULIN RATIO 1.2 (1.1-1.5); ALKALINE PHOSPHATASE 118 IU/L (46-116); ANION GAP 15 (8-16); APTT 25 SECONDS (22-32); ASPARTATE AMINO TRANSFERASE 23 U/L (10-37); BASOPHILS # (AUTO) 0.1 X10'3 (0-0.2); BASOPHILS % (AUTO) 1.1 % (0-1); BILIRUBIN,TOTAL 0.2 MG/DL (0.1-1.0); BLOOD UREA NITROGEN 15 MG/DL (7-18); BUN/CREATININE RATIO 9.7 (5.4-32.0); CALCIUM 8.2 MG/DL (8.5-10.1); CHLORIDE 102 MMOL/L (99-107); CREATININE 1.55 MG/DL (0.60-1.10); EOSINOPHILS # (AUTO) 0.6 X10'3 (0-0.9); EOSINOPHILS % (AUTO) 4.9 % (0-6); GLUCOSE 111 MG/DL (70-104); HEMATOCRIT 36.9 % (42.0-52.0); HEMOGLOBIN 12.2 g/dl (14.0-17.9); LYMPHOCYTES # (AUTO) 2.7 X10'3 (1.1-4.8); LYMPHOCYTES % (AUTO) 21.7 % (21-51); MEAN CORPUSCULAR HEMOGLOBIN 32.6 PG (27.0-31.0); MEAN CORPUSCULAR HGB CONC 33.1 g/dL (33.0-36.5); MEAN CORPUSCULAR VOLUME 98.6 FL (78-98); MEAN PLATELET VOLUME 7.9 FL (7.4-10.4); MONOCYTES % (AUTO) 8.4 % (2-12); NEUTROPHILS # (AUTO) 7.9 X10'3 (1.8-7.7); NEUTROPHILS % (AUTO) 63.9 % (42-75); PLATELET COUNT 313 X10'3 (140-440); POTASSIUM 3.8 MMOL/L (3.5-5.1); RED BLOOD COUNT 3.74 X10'6 (4.70-6.10); RED CELL DISTRIBUTION WIDTH 14.5 % (11.5-14.5); SODIUM 139 MMOL/L (135-145); TOTAL CARBON DIOXIDE 21.6 MMOL/L (24-32); TOTAL PROTEIN 6.3 G/DL (6.4-8.2); WHITE BLOOD COUNT 12.3 X10'3 (4.5-11.0); eGFR 46 ML/MIN
[2021-07-19 23:51] LABS: ETHANOL 0.283 GM/DL (0.0-0.010)
[2021-07-20] MEDS ORDERED: normal saline 1000ml 1,000 ML IV ONE (00:40)
[2021-07-20 03:55] LABS: URINE AMPHETAMINE SCREEN NEGATIVE (Neg); URINE BARBITUATE SCREEN NEGATIVE (Neg); URINE BENZODIAZEPINES SCREEN NEGATIVE (Neg); URINE CANNABINOID SCREEN NEGATIVE (Neg); URINE COCAINE SCREEN NEGATIVE (Neg); URINE METHADONE SCREEN NEGATIVE (Neg); URINE OPIATE SCREEN NEGATIVE (Neg); URINE PHENCYCLIDINE SCREEN NEGATIVE (Neg)
[2021-07-20] MEDS ORDERED: normal saline 1000ML IV soln IVB ONE (06:30)
[2021-07-20 08:07] VITALS: BP 128/75
== END 2021-07-20 08:08 | disposition home or self-care (01) ==
LOC: ER 23:12
DX: S09.90XA Unspecified injury of head, initial encounter (principal); F10.129 Alcohol abuse with intoxication, unspecified; M25.551 Pain in right hip; I25.10 Atherosclerotic heart disease of native coronary artery without angina pectoris; I10 Essential (primary) hypertension; I25.2 Old myocardial infarction; Z85.038 Personal history of other malignant neoplasm of large intestine; Z72.89 Other problems related to lifestyle; Z79.82 Long term (current) use of aspirin; Z79.899 Other long term (current) drug therapy; W19.XXXA Unspecified fall, initial encounter; Y93.89 Activity, other specified; Y92.89 Other specified places as the place of occurrence of the external cause; Y99.8 Other external cause status
CPT/HCPCS: 36415; 70450; 71045; 72125; 73501; 80053; 80305; 80320; 83605; 84484; 85025; 85610; 85730; 93005; 96360; 96361; 99285; J7030

== ENCOUNTER 2024-03-24 12:22 | Emergency (ER) | payer MEDICARE, MEDICAID ==
[~2024-03-24] VITALS: Ht 170.2 cm; Wt 60.0 kg
[2024-03-24 12:33] VITALS: TEMP 97.8
[2024-03-24 13:50] LABS: CLARITY,URINE TURBID (Clear); COLOR,URINE BROWN (Yellow)
[2024-03-24 13:52] LABS: UA COLLECTION TYPE VOIDED
[2024-03-24 13:58] LABS: BACTERIA,URINE 2+ /HPF (Neg); MUCUS STRANDS NONE SEEN /LPF (Neg); RBC,URINE TNTC /HPF (0-2); RENAL CELLS, URINE FEW /HPF; SQUAMOUS EPITHELIAL CELL,UR NONE SEEN /LPF (FEW); WBC CLUMPS,URINE MANY /HPF (NEGATIVE); WBC,URINE TNTC /HPF (0-4)
[2024-03-24] MEDS ORDERED: CEPH-585 PO (16:45)
[2024-03-24] MEDS: CefTRIAXone 1000mg IM Kit (w/lidocaine diluent) IM ONE (17:45)
[2024-03-24 17:49] VITALS: BP 111/79; PULSE 85; RESP 17; O2SAT 99
== END 2024-03-24 17:54 | disposition home or self-care (01) ==
LOC: ER 12:22
DX: N39.0 Urinary tract infection, site not specified (principal); I25.10 Atherosclerotic heart disease of native coronary artery without angina pectoris; I10 Essential (primary) hypertension; I25.2 Old myocardial infarction; Z85.038 Personal history of other malignant neoplasm of large intestine; Z79.82 Long term (current) use of aspirin; Z79.899 Other long term (current) drug therapy
CPT/HCPCS: 81001; 87088; 96372; 99283; J0696; 87077; 87186